=== PATIENT | female | born 1970 | race Two or more races ===

== ENCOUNTER → 2016-05-05 | Outpatient (CLI) | payer OTHER ==
[2016-05-05 12:30] LABS: Basophils # (auto) 0.1 uL; Basophils % (auto) 1.1 % (0.0-2.0); Eosinophils # (auto) 0.1 uL; Eosinophils % (auto) 1.9 % (0.0-7.0); Hematocrit 39.1 % (36.0-46.0); Hemoglobin 12.7 g/dL (12.2-16.2); Lymphocytes % (auto) 30.5 % (10.0-50.0); Mean Corpuscular Hgb Conc. 32.5 g/dL (32.0-36.0); Mean Corpuscular Volume 86.1 fL (80.0-100.0); Mean Platelet Volume 8.1 fL (7.4-10.4); Monocytes # (auto) 0.5 uL; Monocytes % (auto) 7.5 % (0.0-12.0); Neutrophils # (auto) 3.8 uL; Platelet Count (auto) 335 10^3/uL (140-450); Red Cell Distribution Width 18.8 % (11.6-16.0); White Blood Cell 6.5 10^3/uL (4.4-10.8)
[2016-05-05 12:51] LABS: BUN/Creatinine Ratio 13.5; Bilirubin, Total 0.2 mg/dL (0.2-1.0); Calcium 8.9 mg/dL (8.5-10.1); Potassium 3.7 mmol/L (3.5-5.1); Total Protein 8.7 g/dL (6.4-8.2)
== END | disposition home or self-care (01) ==
LOC: LAB 11:37
DX: I10 Essential (primary) hypertension (principal); D64.9 Anemia, unspecified; M25.50 Pain in unspecified joint; M06.9 Rheumatoid arthritis, unspecified; Z79.899 Other long term (current) drug therapy; M32.10 Systemic lupus erythematosus, organ or system involvement unspecified
CPT/HCPCS: 36415; 80053; 85025; 85652; 86141

== ENCOUNTER → 2016-06-08 | Outpatient (CLI) | payer OTHER ==
[2016-06-08 12:14] LABS: Basophils # (auto) 0 uL; Basophils % (auto) 0.9 % (0.0-2.0); Eosinophils # (auto) 0.1 uL; Eosinophils % (auto) 1.7 % (0.0-7.0); Hematocrit 37.5 % (36.0-46.0); Hemoglobin 11.9 g/dL (12.2-16.2); Lymphocytes # (auto) 1.9 uL; Lymphocytes % (auto) 40.6 % (10.0-50.0); Mean Corpuscular Hemoglobin 27.9 pg (28.0-32.0); Mean Corpuscular Hgb Conc. 31.8 g/dL (32.0-36.0); Mean Corpuscular Volume 87.7 fL (80.0-100.0); Mean Platelet Volume 7.9 fL (7.4-10.4); Monocytes # (auto) 0.4 uL; Monocytes % (auto) 8.3 % (0.0-12.0); Neutrophils # (auto) 2.3 uL; Neutrophils % (auto) 48.5 % (37.0-80.0); Platelet Count (auto) 302 10^3/uL (140-450); Red Cell Distribution Width 15.9 % (11.6-16.0); White Blood Cell 4.7 10^3/uL (4.4-10.8)
[2016-06-08 12:48] LABS: Albumin 3.9 g/dL (3.4-5.0); BUN/Creatinine Ratio 15.1; Bilirubin, Total 0.2 mg/dL (0.2-1.0); Calcium 8.9 mg/dL (8.5-10.1); Potassium 3.9 mmol/L (3.5-5.1); Total Protein 8.3 g/dL (6.4-8.2)
== END | disposition home or self-care (01) ==
LOC: LAB 10:57
DX: C90.00 Multiple myeloma not having achieved remission (principal); M06.9 Rheumatoid arthritis, unspecified; N18.9 Chronic kidney disease, unspecified
CPT/HCPCS: 36415; 80053; 85025; 85652; 86141

== ENCOUNTER → 2016-07-27 | Outpatient (CLI) | payer OTHER | END | disposition home or self-care (01) | LOC: LAB 13:29 | DX: N18.9 Chronic kidney disease, unspecified (principal); M06.9 Rheumatoid arthritis, unspecified; C90.00 Multiple myeloma not having achieved remission | CPT/HCPCS: 82784; 86334; 86335 ==